=== PATIENT | female | born 1940 | race Caucasian/White ===

== ENCOUNTER 2020-08-25 22:56 | Observation (INO) | payer MEDICARE, BC ==
[~2020-08-25] VITALS: Ht 165.1 cm; Wt 105.0 kg
[~2020-08-25 22:56] MED LIST: ASPIRIN E.C. 8181 MG PO; CALTRATE-600 W600 MG PO; FISH OIL CONC1000 MG PO; LEVAQUIN 5500 MG/TAB PO; MULTIPLE VITAMI1 TA1 PO; MVI; NORVASC 5MG5 MG/TAB PO; PYRIDIUM 100MG100 MG PO; ZOFRAN4 M1 PO
[2020-08-26 00:36] LABS: ALBUMIN 4.1 gm/dL (3.5-5.0); BILIRUBIN,TOTAL 0.3 mg/dL (0.0-1.0); C-REACTIVE PROTEIN 2.7 mg/dL (0.0-0.9); CALCIUM 8.5 mg/dL (8.4-10.2); CREATININE, serum 0.65 (0.52-1.25); POTASSIUM 3.7 mmol/L (3.4-5.0); TOTAL PROTEIN 7.2 gm/dL (6.4-8.2)
[2020-08-26 00:39] LABS: BASO % 0.2 % (0.0-2.0); EOS # 0.1 (0.0-0.7); EOS % 0.7 % (0-4.0); GRAN # 11.2 (1.4-6.5); GRAN % 89.4 % (42.2-75.2); HEMATOCRIT 38.8 % (37.0-47.0); HEMOGLOBIN 12.8 g/dl (12.5-16.0); LYMPH # 0.7 (1.2-3.4); LYMPH % 5.7 % (20.0-51.0); MEAN CELL VOLUME 95 fl (80.0-100.0); MEAN CORPUSCULAR HEMOGLOBIN 31 pg (27.0-31.0); MEAN CORPUSCULAR HGB CONC 33 g/dl (33.0-37.0); MEAN PLATELET VOLUME 11.5 fl (7.4-10.4); MONO # 0.5 (0.1-0.6); MONO % 3.6 % (1.7-9.3); PLATELET COUNT 152 K/mm3 (130-400); RED BLOOD COUNT 4.07 M/mm3 (4.10-5.30); REDCELL DISTRIBUTION WIDTH-CV 12.4 % (11.5-14.5)
[2020-08-26 01:28] LABS: COLLECTION METHOD CLEAN CATCH
[2020-08-26 01:35] LABS: PH 8 (5-8); SQUAMOUS EPITHELIAL 0-2 /hpf; URINE APPEARANCE Hazy; URINE BACTERIA None Seen /hpf; URINE BILIRUBIN Negative (NEGATIVE); URINE BLOOD Negative (NEGATIVE); URINE COLOR Yellow; URINE GLUCOSE Negative (NEGATIVE); URINE KETONE Negative (NEGATIVE); URINE LEUKOCYTE ESTERASE Negative (NEGATIVE); URINE NITRATE Negative (NEGATIVE); URINE PROTEIN(semi-quant) Negative (NEGATIVE); URINE RBC 0-2 /hpf; URINE UROBILINOGEN Negative (NEGATIVE)
[2020-08-26] MEDS ORDERED: ZOLOFT 50MG50 MG PO (03:12)
[2020-08-26] MEDS ORDERED: CALCIUM 600MG+D1 TAB PO (05:12)
[2020-08-26 07:46] VITALS: BP 109/51; PULSE 64; TEMP 97.4
--- NOTE | 2020-08-26 09:30 | NUR ---
Patient alert and oriented, answers questions appropriately. See assessment. Abdomen soft, non tender, non distended. Bowel sounds active x4 quads. +Flatus. No c/o n/v. No other c/o at this time.
[2020-08-26 11:46] VITALS: BP 157/75; PULSE 66; TEMP 98.1
--- NOTE | 2020-08-26 12:54 | NUR ---
Dr Jolly notified of consult.
--- NOTE | 2020-08-26 13:13 | NUR ---
Chemistry Technical Officer attended clinical rounds with the team. The patient's was present. After rounds, SW met with the patient and the patient's , Jai (goes by [employer]). The patient has a 4WW and takes baths. The patient's PCP is Dr. Jonathan Ewing at [facility] in and the patient receives medications from [facility]. The patient does not have advanced directives in the EMR and was not interested in DPOA-HC form at this time. The patient plans to return home. PT is recommending home health for the patient. SW discussed this recommendation with the patient. She states she has had OP PT at [facility] in the past. SW provided Medicare.gov's list of agencies that provide home health services. The patient to review the list then inform this SW of her decision. *Discharge disposition at this time: Home (possibly with OP PT or home health)
--- NOTE | 2020-08-26 13:40 | NUR ---
Initial visit; Patient thanked [employer] for looking in on her, offering God's blessings and keeping both her and her in [employer]'s prayers.
[2020-08-26] MEDS ORDERED: AMOXICILLIN 8751 TAB PO (15:01)
[2020-08-26] MEDS ORDERED: PROTONIX 40MG T40 MG PO (15:02)
--- NOTE | 2020-08-26 16:16 | NUR ---
Discharge instructions reviewed with patient and spouse, verbalized understanding. Discharged via wheelchair to auto/home with spouse at 1600.
== END 2020-08-26 16:00 | disposition home or self-care (01) ==
LOC: COL.ER 22:56 → MEDICAL 23:19 → SURG 08-26 03:29
PROVIDERS: Nurse Practitioner; ADMIT Family Medicine
DX: R11.2 Nausea with vomiting, unspecified (principal); R10.9 Unspecified abdominal pain; I10 Essential (primary) hypertension; E66.9 Obesity, unspecified; G89.29 Other chronic pain; D72.829 Elevated white blood cell count, unspecified; E87.2 Acidosis; R53.81 Other malaise; F32.9 Major depressive disorder, single episode, unspecified; F41.9 Anxiety disorder, unspecified; Z90.710 Acquired absence of both cervix and uterus; Z90.89 Acquired absence of other organs; Z79.82 Long term (current) use of aspirin; Z79.899 Other long term (current) drug therapy; Z87.891 Personal history of nicotine dependence
CPT/HCPCS: C9113; G0378; J1650; J2405; J2543; J2550; J3010; J7030; J7120; Q9967